=== PATIENT | male | born 1960 | race Caucasian/White ===

== ENCOUNTER 2017-10-16 14:24 | Emergency (ER) | payer MEDICAID ==
[~2017-10-16] VITALS: Ht 170.2 cm; Wt 78.0 kg
[2017-10-16] MEDS ORDERED: TETANUS, DIPHTHERIA, PERTUSSIS VAC/PF 0.5ML (>7YR OLD) IM ONE (14:45)
[2017-10-16] MEDS ORDERED: IBUPROFEN 600MG TABLET PO ONE (15:30)
[2017-10-16] MEDS ORDERED: MORPHINE SULFATE 10 MG/ML CPJ IV ONE (15:45)
[2017-10-16] MEDS: MORPHINE SULFATE 4 MG/ML CPJ (NOT FOR IM USE) IV NR ×2 (16:11→18:43)
[2017-10-16] MEDS ORDERED: SODIUM CHLORIDE 0.9% 1,000 ML IV ONE ×2 (16:37→16:45)
[2017-10-16] MEDS ORDERED: ETOMIDATE 2MG/ML 10ML VIAL IV ONE (16:45)
[2017-10-16 21:17] VITALS: BP 166/85
== END 2017-10-16 21:44 | disposition home or self-care (01) ==
LOC: ER 16:14
DX: S82.851A Displaced trimalleolar fracture of right lower leg, initial encounter for closed fracture (principal); S01.412A Laceration without foreign body of left cheek and temporomandibular area, initial encounter; E11.9 Type 2 diabetes mellitus without complications; Y08.89XA Assault by other specified means, initial encounter; Y93.9 Activity, unspecified; Y92.9 Unspecified place or not applicable
CPT/HCPCS: 12001; 27818; 73590; 73610; 90471; 90715; 96361; 96374; 99152; 99285; J2270; J3490; J7030; Z7610